=== PATIENT | male | born 1955 | race Native Hawaiian/Other Pacific Islander ===

== ENCOUNTER 2016-09-17 12:43 | Observation (INO) | payer OTHER ==
[2016-09-17] MEDS ORDERED: Clindamycin 600 MG in Sodium Chloride 0.9% 100 ML IVPB ONE (12:56)
[2016-09-17] MEDS ORDERED: cefTRIAXone (Rocephin) 1 gm Inj ONE (13:03)
--- NOTE | 2016-09-17 13:07 | ED PDOC ---
HPI: General Adult Time Seen by Provider: 09/17/16 12:49 Chief Complaint (Nursing): Abnormal Skin Integrity Chief Complaint (Provider): Abnormal Skin Integrity History Per: Patient History/Exam Limitations: no limitations Onset/Duration Of Symptoms: Days (Since yesterday, 09/16/2016) Current Symptoms Are (Timing): Still Present Additional Complaint(s): 61 y/o male presents to the emergency department with a complaint of a sore throat, difficulty swallowing, and left sided neck pain since yesterday, 2016. Denies shortness of breath, drooling, or fever. Past Medical History Reviewed: Historical Data, Nursing Documentation, Vital Signs Vital Signs: Last Vital Signs Temp 98.8 F 09/17/16 12:47 Pulse 90 09/17/16 12:47 Resp 16 09/17/16 12:47 BP 148/90 09/17/16 12:47 Pulse Ox 97 09/17/16 13:53 - Medical History PMH: Diverticulitis, HTN - Surgical History Surgical History: No Surg Hx - Family History Family History: States: Unknown Family Hx - Social History Current smoker - smoking cessation education provided: No Alcohol: None Drugs: Denies - Allergies Allergies/Adverse Reactions: Allergies Allergy/AdvReac Type Severity Reaction Status Date / Time No Known Allergies Allergy Verified 09/17/16 12:46 Review of Systems ROS Statement: Except As Marked, All Systems Reviewed And Found Negative Constitutional: Negative for: Fever ENT: Positive for: Throat Pain (with difficulty swallowing). Negative for: Other (No drooling) Respiratory: Negative for: Shortness of Breath Musculoskeletal: Positive for: Neck Pain (Left-sided) Physical Exam - Reviewed Nursing Documentation Reviewed: Yes Vital Signs Reviewed: Yes - Physical Exam Appears: Positive for: Non-toxic, No Acute Distress Head Exam: Positive for: ATRAUMATIC, NORMAL INSPECTION, NORMOCEPHALIC Skin: Positive for: Normal Color, Warm, Dry ENT: Positive for: Tonsillar Swelling (Left peritonsillar swelling with deviation of uvula. ). Negative for: Other (Trismus or drooling) Neck: Positive for: Painless ROM (Left-sided swelling of the neck extending to the left submandibular area. ), Supple. Negative for: Normal Cardiovascular/Chest: Positive for: Regular Rate, Rhythm. Negative for: Murmur Respiratory: Positive for: Normal Breath Sounds. Negative for: Accessory Muscle Use, Respiratory Distress Neurologic/Psych: Positive for: Alert, Oriented - Laboratory Results Result Diagrams: 09/17/16 13:00 09/17/16 13:00 - ECG O2 Sat by Pulse Oximetry: 97 (RA) Pulse Ox Interpretation: Normal Medical Decision Making Medical Decision Making: Time: 12:54 Initial plan: --VBG --Neck Soft Tissue w/ contrast CT --CMP --CBC w/ diff --Chest Two Views --Clindamycin 600 mg --Methylprednisolone 125 mg IVP --Rocephin 1 gm IV --Blood Culture --Reevaluation Time: 13:45 --Chest X-ray FINDINGS: LUNGS: No active pulmonary disease. PLEURA: No significant pleural effusion identified. No pneumothorax apparent. CARDIOVASCULAR: Normal. OSSEOUS STRUCTURES: No significant abnormalities. VISUALIZED UPPER ABDOMEN: Normal. OTHER FINDINGS: None. IMPRESSION: No active disease. Scribe Attestation: Documented by Chika White, acting as a scribe for Seamus Morales MD. Provider Scribe Attestation: All medical record entries made by the Scribe were at my direction and personally dictated by me. I have reviewed the chart and agree that the record accurately reflects my personal performance of the history, physical exam, medical decision making, and the department course for this patient. I have also personally directed, reviewed, and agree with the discharge instructions and disposition. Disposition - Clinical Impression Clinical Impression: Peritonsillar abscess - Patient ED Disposition Is Patient to be Admitted: Transfer of Care - Disposition Disposition: Transfer of Care Disposition Time: 14:58 Condition: FAIR Forms: [employer] 1 (Urdu) Patient Signed Over To: Daksha Escalera
[2016-09-17 13:36] LABS: BASO % 0.2 % (0.0-2.0); EOS # 0.1 K/uL (0.0-0.7); EOS % 0.5 % (0.0-4.0); LYMPH # 1.7 K/uL (1.0-4.3); LYMPH % 13.9 % (20.0-40.0); MEAN CELL VOLUME 99.4 fl (80.0-94.0); MEAN CORPUSCULAR HEMOGLOBIN 32.6 pg (27.0-31.0); MEAN CORPUSCULAR HGB CONC 32.8 g/dL (33.0-37.0); MEAN PLATELET VOLUME 8.2 fl (7.2-11.7); MONO # 0.9 K/uL (0.0-0.8); MONO % 7.1 % (0.0-10.0); NEUT # 9.6 K/uL (1.8-7.0); NEUT % 78.3 % (50.0-75.0); NRBC % 0.1 % (0.0-0.0); RBC 5.22 Mil/uL (4.40-5.90); WHITE BLOOD COUNT 12.3 K/uL (4.8-10.8)
--- NOTE | 2016-09-17 13:47 | RAD ---
HISTORY: fever COMPARISON: No prior. TECHNIQUE: Chest PA and lateral FINDINGS: LUNGS: No active pulmonary disease. PLEURA: No significant pleural effusion identified. No pneumothorax apparent. CARDIOVASCULAR: Normal. OSSEOUS STRUCTURES: No significant abnormalities. VISUALIZED UPPER ABDOMEN: Normal. OTHER FINDINGS: None. IMPRESSION: No active disease.
[2016-09-17 13:48] LABS: ALB/GLOB RATIO 1.2 (1.0-2.1); ALBUMIN 4.6 g/dL (3.5-5.0); ALT/SGPT 22 U/L (21-72); AST/SGOT 30 U/L (17-59); BLOOD UREA NITROGEN 13 mg/dl (9-20); CALCIUM 9.5 mg/dL (8.4-10.2); GFR AFRICAN-AMERICAN > 60; GFR NON-AFRICAN AMERICAN > 60
[2016-09-17 13:59] LABS: VENOUS BLOOD GAS BASE EXCESS 4.2 mmol/L (0.0-2.0); VENOUS BLOOD GAS PCO2 50 mmHg (40-60); VENOUS BLOOD GAS PO2 22 mm/Hg (30-55); VENOUS BLOOD PH 7.39 (7.32-7.43)
[2016-09-17] MEDS ORDERED: Iohexol 300 100 ML IJ ONE (14:09)
[2016-09-17] MEDS ORDERED: Sodium Chloride 0.9% 50 ML IV ONE (14:10)
--- NOTE | 2016-09-17 15:06 | CT ---
PROCEDURE: CT NECK WITH CONTRAST HISTORY: Left sided neck swellimng, peritonsilar abscess COMPARISON: None TECHNIQUE: CT of the neck with intravenous contrast. Coronal and sagittal reformats generated. Intravenous contrast dose: 100 cc Optiray 350. Radiation dose: DLP mGy-cm This CT exam was performed using one or more of the following dose reduction techniques: Automated exposure control, adjustment of the mA and/or kV according to patient size, and/or use of iterative reconstruction technique. FINDINGS: NASOPHARYNX: Unremarkable. SUPRAHYOID NECK: Left parapharyngeal abscess with roughly 5mm cystic component internally.. INFRAHYOID NECK: Unremarkable larynx, hypopharynx, and supraglottic space. Vocal cords intact. MASS: None. GLANDS: Parotid and submandibular glands unremarkable. Normal size thyroid gland, without nodule. LYMPH NODES: Normal. No lymphadenopathy. CERVICAL SPINE: No fracture or focal lesion. VASCULAR STRUCTURES: Unremarkable. OTHER FINDINGS: None. IMPRESSION: Left parapharyngeal abscess with a roughly 5 mm cystic component. Otherwise,contrast enhanced CT of the neck.
--- NOTE | 2016-09-17 15:11 | ED PDOC ---
- Laboratory Results Result Diagrams: 09/17/16 13:00 09/17/16 13:00 - ECG O2 Sat by Pulse Oximetry: 97 (RA) Medical Decision Making Medical Decision Makin:00 Pt endorsed to me by Dr. Carmen MD. Pending ED workup, re-eval, and final disposition. CT SOFT TISSUES NECK FINDINGS: NASOPHARYNX: Unremarkable. SUPRAHYOID NECK: Left parapharyngeal abscess with roughly 5mm cystic component internally.. INFRAHYOID NECK: Unremarkable larynx, hypopharynx, and supraglottic space. Vocal cords intact. MASS: None. GLANDS: Parotid and submandibular glands unremarkable. Normal size thyroid gland, without nodule. LYMPH NODES: Normal. No lymphadenopathy. CERVICAL SPINE: No fracture or focal lesion. VASCULAR STRUCTURES: Unremarkable. OTHER FINDINGS: None. IMPRESSION: Left parapharyngeal abscess with a roughly 5 mm cystic component. Otherwise, contrast enhanced CT of the neck. 330p DW pt findings and plan of care. DW Dr Ornelas PMD who requests consult to ENT Dr Aleja Masterson who reviewed CT findings and will come to evaluation patient, advised to prepare for possible surgery. Documented by Modesto Hudson, acting as a scribe for Daksha Escalera MD. All medical record entries made by the Scribe were at my direction and personally dictated by me. I have reviewed the chart and agree that the record accurately reflects my personal performance of the history, physical exam, medical decision making, and the department course for this patient. I have also personally directed, reviewed, and agree with the discharge instructions and disposition. Disposition Counseled Patient/Family Regarding: Studies Performed, Diagnosis - Clinical Impression Clinical Impression: Parapharyngeal abscess - POA Present On Arrival: None - Disposition Disposition: Hospitalized as Observation Patient Disposition Time: 15:45 Condition: FAIR
[2016-09-17 16:32] LABS: INR 1.2 (0.9-1.2); PARTIAL THROMBOPLASTIN TIME 35.3 Seconds (25.6-37.1); PROTHROMBIN TIME 12.4 Seconds (9.8-13.1)
--- NOTE | 2016-09-17 16:33 | CP.PCM.HP ---
History of Present Illness - History of Present Illness History of Present Illness: This is a 61 y/o male with hx of HTN and hyperlipidemia was sent to ER for evaluation of rapidly worsening neck pain and swelling for the past twelve hours. He denies any fever Claims that he had a tooth extraction about two weeks ago but never had any pain at the site of extraction. yesterday, he noted some pain on swallowing and started to have swelling at the left anterior aspect of the neck. he came to my office today and was advised ER eval for proper treatment and possibly I and D. Present on Admission - Present on Admission Any Indicators Present on Admission: No History of DVT/PE: No History of Uncontrolled Diabetes: No Urinary Catheter: No Decubitus Ulcer Present: No Review of Systems - Constitutional Constitutional: absent: Other Past Patient History - Past Social History Smoking Status: Never Smoked - CARDIAC Hx Hypertension: Yes - GASTROINTESTINAL Hx Diverticulitis: Yes - PSYCHIATRIC Hx Emotional Abuse: No Hx Physical Abuse: No - SURGICAL HISTORY Other/Comment: diverticulitis sx. Meds Allergies/Adverse Reactions: Allergies Allergy/AdvReac Type Severity Reaction Status Date / Time No Known Allergies Allergy Verified 09/17/16 12:46 Physical Exam - Head Exam Head Exam: NORMAL INSPECTION - Eye Exam Eye Exam: Normal appearance - ENT Exam ENT Exam: Mucous Membranes Moist Additional comments: swelling and tenderness on the left anterior aspect of the neck no lymphadenopathy - Neck Exam Neck exam: Positive for: Tenderness - Respiratory Exam Respiratory Exam: Clear to Auscultation Bilateral - Cardiovascular Exam Cardiovascular Exam: REGULAR RHYTHM - GI/Abdominal Exam GI & Abdominal Exam: Normal Bowel Sounds - Neurological Exam Neurological exam: CN II-XII Intact, Oriented x3 Results - Vital Signs Recent Vital Signs: Last Vital Signs Temp 98.0 F 09/17/16 15:59 Pulse 84 09/17/16 15:59 Resp 19 09/17/16 15:59 BP 143/84 09/17/16 15:59 Pulse Ox 100 09/17/16 15:59 - Labs Result Diagrams: 09/17/16 13:00 09/17/16 13:00 Assessment & Plan (1) Parapharyngeal abscess Status: Acute (2) Hypertension Status: Acute - Assessment and Plan (Free Text) Plan: iV antibioics ENT eval iv hydration medicaly stable for I and D.
[2016-09-17] MEDS ORDERED: Propofol 10 mg/ml Inj (20 ML) ONE ×2 (16:55→17:13)
[2016-09-17] MEDS ORDERED: Succinylcholine 200 mg/10 ml Inj IV ONE (16:55)
[2016-09-17] MEDS ORDERED: Lactated Ringer's 1,000 ML IV ONE (16:56)
[2016-09-17] MEDS ORDERED: Morphine 4 MG/ML VIAL IVP PRN (20:17)
[2016-09-18 00:36] VITALS: O2SAT 96
--- NOTE | 2016-09-18 03:09 | OP ---
PROCEDURE DATE: 09/17/2016 PREOPERATIVE DIAGNOSIS: Left pharyngeal abscess. POSTOPERATIVE DIAGNOSIS: Left pharyngeal abscess. PROCEDURE: Incision and drainage of the left pharyngeal abscess. SECONDARY FINDINGS: Left pharyngeal abscess. DESCRIPTION OF PROCEDURE: The patient was brought to the room, placed in the supine position, anesthesia was initiated through an ET tube. Shoulder roll was placed and neck extended. The patient was draped in the usual manner. Mouth gag was placed in the oral cavity, opened and suspended on the [employer] industrial relations counselor the usual manner. An incision was made in the left lateral pharyngeal wall. The incision was extended superiorly to the inferior portion of the left tonsil. Blunt dissections were done. A small amount of pus was noted coming out. Bleeding was controlled with time. The mouth gag was taken out and removed. The tooth guard was placed over the upper teeth in order to protect them and a direct laryngoscope was inserted into the oral cavity and passed the oropharynx and hypopharynx. Lateral pharyngeal wall was viewed. No further suspicious areas of abscess were noted. The direct laryngoscope was removed. The tooth guard was remove. The patient was taken off of anesthesia and taken to the recovery room in stable manner. Hero Masterson MD MTD[place]
[2016-09-18 08:36] VITALS: BP 124/73; PULSE 67; RESP 18; TEMP 98.8
--- NOTE | 2016-09-18 12:26 | CP.PCM.DIS ---
Provider - Provider Date of Admission: 09/17/16 15:48 Attending physician: Adis Ornelas MD Time Spent in preparation of Discharge (in minutes): 30 Diagnosis - Discharge Diagnosis (1) Parapharyngeal abscess Status: Acute (2) Hypertension Status: Acute Hospital Course - Lab Results Lab Results: Most Recent Lab Values WBC 12.3 K/uL (4.8-10.8) H 09/17/16 13:00 RBC 5.22 Mil/uL (4.40-5.90) 09/17/16 13:00 Hgb 17.0 g/dL (12.0-18.0) 09/17/16 13:00 Hct 51.9 % (35.0-51.0) H 09/17/16 13:00 MCV 99.4 fl (80.0-94.0) H 09/17/16 13:00 MCH 32.6 pg (27.0-31.0) H 09/17/16 13:00 MCHC 32.8 g/dL (33.0-37.0) L 09/17/16 13:00 RDW 14.0 % (11.5-14.5) 09/17/16 13:00 Plt Count 203 K/uL (130-400) 09/17/16 13:00 MPV 8.2 fl (7.2-11.7) 09/17/16 13:00 Neut % (Auto) 78.3 % (50.0-75.0) H 09/17/16 13:00 Lymph % (Auto) 13.9 % (20.0-40.0) L 09/17/16 13:00 [place] % (Auto) 7.1 % (0.0-10.0) 09/17/16 13:00 Eos % (Auto) 0.5 % (0.0-4.0) 09/17/16 13:00 Baso % (Auto) 0.2 % (0.0-2.0) 09/17/16 13:00 Neut # 9.6 K/uL (1.8-7.0) H 09/17/16 13:00 Lymph # 1.7 K/uL (1.0-4.3) 09/17/16 13:00 [place] # 0.9 K/uL (0.0-0.8) H 09/17/16 13:00 Eos # 0.1 K/uL (0.0-0.7) 09/17/16 13:00 Baso # 0.0 K/uL (0.0-0.2) 09/17/16 13:00 PT 12.4 Seconds (9.8-13.1) 09/17/16 15:48 INR 1.2 (0.9-1.2) 09/17/16 15:48 APTT 35.3 Seconds (25.6-37.1) 09/17/16 15:48 pO2 22 mm/Hg (30-55) L 09/17/16 13:56 VBG pH 7.39 (7.32-7.43) 09/17/16 13:56 VBG pCO2 50 mmHg (40-60) 09/17/16 13:56 VBG HCO3 26.6 mmol/L 09/17/16 13:56 VBG Total CO2 31.8 mmol/L (22-28) H 09/17/16 13:56 VBG O2 Sat (Calc) 50.5 % (40-65) 09/17/16 13:56 VBG Base Excess 4.2 mmol/L (0.0-2.0) H 09/17/16 13:56 VBG Potassium 3.9 mmol/L (3.6-5.2) 09/17/16 13:56 Sodium 140.0 mmol/L (132-148) 09/17/16 13:56 Chloride 103.0 mmol/L (98-107) 09/17/16 13:56 Glucose 123 mg/dL (75-110) H 09/17/16 13:56 Lactate 1.5 mmol/L (0.7-2.1) 09/17/16 13:56 FiO2 21.0 % 09/17/16 13:56 Sodium 142 mmol/l (132-148) 09/17/16 13:00 Potassium 4.5 MMOL/L (3.6-5.0) 09/17/16 13:00 Chloride 105 mmol/L (98-107) 09/17/16 13:00 Carbon Dioxide 23 mmol/L (22-30) 09/17/16 13:00 Anion Gap 17 (10-20) 09/17/16 13:00 BUN 13 mg/dl (9-20) 09/17/16 13:00 Creatinine 1.0 mg/dL (0.8-1.5) 09/17/16 13:00 Est GFR ( Amer) > 60 09/17/16 13:00 Est GFR (Non-Af Amer) > 60 09/17/16 13:00 Random Glucose 124 mg/dL (75-110) H 09/17/16 13:00 Calcium 9.5 mg/dL (8.4-10.2) 09/17/16 13:00 Total Bilirubin 1.5 mg/dl (0.2-1.3) H 09/17/16 13:00 AST 30 U/L (17-59) 09/17/16 13:00 ALT 22 U/L (21-72) 09/17/16 13:00 Alkaline Phosphatase 71 U/L (38-126) 09/17/16 13:00 Total Protein 8.4 G/DL (6.3-8.2) H 09/17/16 13:00 Albumin 4.6 g/dL (3.5-5.0) 09/17/16 13:00 Globulin 3.8 gm/dL (2.2-3.9) 09/17/16 13:00 Albumin/Globulin Ratio 1.2 (1.0-2.1) 09/17/16 13:00 Venous Blood Potassium 3.9 mmol/L (3.6-5.2) 09/17/16 13:56 Blood Type B POSITIVE 09/17/16 15:15 Antibody Screen Negative 09/17/16 15:15 BBK History Checked No verified bt 09/17/16 15:15 - Hospital Course Hospital Course: This is a 61 y/o male who developed a left pharyngeal abscess in 24 hrs. Significant hx of tooth extraction 2 weeks prior to onset. He presented with swelling and tenderness on the left side of the neck but had no fever. He was admitted and consulted Dr Masterson who started him on IV antibioics and proceeded with I and D of abscess. patient tolerated procedure well and was stable all throughout the 24 hr post surgery period. He was started on liquids post op and advanced to soft. He was discharged in stable condition and sent on Rx Augmentin 875 bid x 7 days and Ibuprofen 800 tid prn Discharge Exam - Head Exam Head Exam: NORMAL INSPECTION - Eye Exam Eye Exam: Normal appearance - Respiratory Exam Respiratory Exam: NORMAL BREATHING PATTERN - Cardiovascular Exam Cardiovascular Exam: REGULAR RHYTHM - GI/Abdominal Exam GI & Abdominal Exam: Normal Bowel Sounds - Neurological Exam Neurological exam: CN II-XII Intact, Oriented x3 - Psychiatric Exam Psychiatric exam: Normal Mood Discharge Plan - Follow Up Plan Condition: FAIR Disposition: HOME/ ROUTINE Additional Instructions: Start Augmentin 875 bid x 7 days and Ibuprofen 800 tid advised follow up in 1 week,
--- NOTE | 2016-09-18 13:00 | CARD ---
APPROVED REPORT EKG Measurement Heart [id number] <Conclusion> Normal sinus rhythm Possible Left atrial enlargement Borderline ECG
== END 2016-09-18 14:43 | disposition home or self-care (01) ==
LOC: H.ER 12:43 → H.ERHOLD 15:48 → H.MEDSURG1 19:07
PROVIDERS: ADMIT Family Medicine; ATTEND Family Medicine
DX: J39.0 Retropharyngeal and parapharyngeal abscess (principal); I10 Essential (primary) hypertension; E78.5 Hyperlipidemia, unspecified